=== PATIENT | female | born 1995 | race Caucasian/White ===

== ENCOUNTER 2017-04-01 21:40 | Emergency (ER) | payer MEDICAID ==
[~2017-04-01] VITALS: Ht 5283.9 cm; Wt 116.1 kg
[~2017-04-01 21:40] MED LIST: METO-292 PO; ONDA4TAB12 PO
[2017-04-01 22:53] LABS: URINE HCG NEGATIVE (NEG)
[2017-04-01] MEDS ORDERED: fluconazole 150mg tablet PO ONE (23:00)
[2017-04-01 23:18] VITALS: BP 128/69
== END 2017-04-01 23:20 | disposition home or self-care (01) ==
LOC: ER 21:41
DX: B37.3 Candidiasis of vulva and vagina (principal); F12.10 Cannabis abuse, uncomplicated; Z88.8 Allergy status to other drugs, medicaments and biological substances; Z79.899 Other long term (current) drug therapy
CPT/HCPCS: 36415; 81025; 87210; 87491; 99284

== ENCOUNTER 2020-07-23 16:41 | Emergency (ER) | payer MEDICAID ==
[~2020-07-23] VITALS: Ht 160 cm; Wt 119.8 kg
[2020-07-23 17:22] VITALS: BP 141/91
[2020-07-23] MEDS ORDERED: PENI500T2 PO (19:36)
== END 2020-07-23 20:14 | disposition home or self-care (01) ==
LOC: ER 16:42
DX: J03.90 Acute tonsillitis, unspecified (principal); F41.9 Anxiety disorder, unspecified; F32.9 Major depressive disorder, single episode, unspecified; F12.90 Cannabis use, unspecified, uncomplicated; Z88.8 Allergy status to other drugs, medicaments and biological substances; Z79.2 Long term (current) use of antibiotics; Z79.899 Other long term (current) drug therapy
CPT/HCPCS: 99283

== ENCOUNTER 2020-09-12 11:12 | Emergency (ER) | payer MEDICAID ==
[~2020-09-12] VITALS: Ht 162.6 cm; Wt 100.0 kg
[2020-09-12 11:36] VITALS: BP 148/97
== END 2020-09-12 13:08 | disposition home or self-care (01) ==
LOC: ER 11:13
DX: G43.909 Migraine, unspecified, not intractable, without status migrainosus (principal); Z88.8 Allergy status to other drugs, medicaments and biological substances; F31.9 Bipolar disorder, unspecified; F12.10 Cannabis abuse, uncomplicated
CPT/HCPCS: 99281

== ENCOUNTER 2021-01-01 21:38 | Emergency (ER) | payer MEDICAID ==
[~2021-01-01] VITALS: Ht 152.4 cm; Wt 115.9 kg
[2021-01-01] MEDS ORDERED: LIDOcaine 1% 30ml preserv. free vial IJ ONE (22:00)
[2021-01-01 22:36] VITALS: BP 147/70
== END 2021-01-01 22:52 | disposition home or self-care (01) ==
LOC: ER 21:38
DX: S61.216A Laceration without foreign body of right little finger without damage to nail, initial encounter (principal); M79.644 Pain in right finger(s); G43.909 Migraine, unspecified, not intractable, without status migrainosus; F41.9 Anxiety disorder, unspecified; F32.9 Major depressive disorder, single episode, unspecified; F12.90 Cannabis use, unspecified, uncomplicated; Z88.8 Allergy status to other drugs, medicaments and biological substances; Z79.899 Other long term (current) drug therapy; W25.XXXA Contact with sharp glass, initial encounter; Y93.89 Activity, other specified; Y92.89 Other specified places as the place of occurrence of the external cause; Y99.8 Other external cause status
CPT/HCPCS: 12001; 99282

== ENCOUNTER 2021-02-13 14:53 | Emergency (ER) | payer MEDICAID ==
--- NOTE | 2021-02-13 15:30 | NUR ---
Called second time, not in lobby
== END 2021-02-13 16:21 | disposition left against medical advice (07) ==
LOC: ER 14:53
DX: Z48.02 Encounter for removal of sutures (principal); Z53.21 Procedure and treatment not carried out due to patient leaving prior to being seen by health care provider

== ENCOUNTER 2021-02-15 15:11 | Emergency (ER) | payer MEDICAID ==
[~2021-02-15] VITALS: Ht 157.5 cm; Wt 116.0 kg
== END 2021-02-15 16:15 | disposition home or self-care (01) ==
LOC: ER 15:12
DX: S61.411D Laceration without foreign body of right hand, subsequent encounter (principal); G43.909 Migraine, unspecified, not intractable, without status migrainosus; F12.90 Cannabis use, unspecified, uncomplicated; Z48.02 Encounter for removal of sutures; Z88.8 Allergy status to other drugs, medicaments and biological substances; Z79.899 Other long term (current) drug therapy; X58.XXXD Exposure to other specified factors, subsequent encounter
CPT/HCPCS: 99282

== ENCOUNTER 2022-01-20 10:55 | Emergency (ER) | payer MEDICAID ==
[~2022-01-20] VITALS: Ht 157.5 cm; Wt 100.0 kg
[2022-01-20] MEDS ORDERED: normal saline 1000ml 1,000 ML IV ONE (13:10)
[2022-01-20 13:32] LABS: BASOPHILS % (AUTO) 0.1 % (0-1); EOSINOPHILS % (AUTO) 0 % (0-6); HEMATOCRIT 36.3 % (35.0-45.0); LYMPHOCYTES # (AUTO) 1.2 X10'3 (1.1-4.8); LYMPHOCYTES % (AUTO) 6.7 % (21-51); MEAN CORPUSCULAR HEMOGLOBIN 26.9 PG (27.0-31.0); MEAN CORPUSCULAR HGB CONC 33.1 g/dL (33.0-36.5); MEAN CORPUSCULAR VOLUME 81.2 FL (78-98); MEAN PLATELET VOLUME 9.2 FL (7.4-10.4); MONOCYTES # (AUTO) 1.7 X10'3 (0-0.9); MONOCYTES % (AUTO) 9.2 % (2-12); NEUTROPHILS # (AUTO) 15.4 X10'3 (1.8-7.7); PLATELET COUNT 273 X10'3 (140-440); RED BLOOD COUNT 4.47 X10'6 (4.20-5.60); RED CELL DISTRIBUTION WIDTH 16.1 % (11.5-14.5); WHITE BLOOD COUNT 18.3 X10'3 (4.5-11.0)
[2022-01-20 13:44] LABS: ALANINE AMINOTRANSFERASE 65 U/L (12-78); ALBUMIN/GLOBULIN RATIO 0.6 (1.1-1.5); ALKALINE PHOSPHATASE 68 IU/L (46-116); ANION GAP 7 (8-16); ASPARTATE AMINO TRANSFERASE 20 U/L (10-37); BILIRUBIN,TOTAL 0.6 MG/DL (0.1-1.0); BLOOD UREA NITROGEN 6 MG/DL (7-18); BUN/CREATININE RATIO 6.5 (6.6-38.0); CHLORIDE 99 MMOL/L (99-107); CREATININE 0.93 MG/DL (0.40-0.90); GLUCOSE 125 MG/DL (70-104); POTASSIUM 3.7 MMOL/L (3.5-5.1); SODIUM 135 MMOL/L (135-145); TOTAL CARBON DIOXIDE 29.5 MMOL/L (24-32); TOTAL PROTEIN 7.9 G/DL (6.4-8.2); eGFR 73 ML/MIN
[2022-01-20] MEDS ORDERED: acetaminophen 325mg tablet PO ONE (14:35)
[2022-01-20] MEDS ORDERED: ketorolac trometh. 30mg/ml inj. IV ONE (14:35)
[2022-01-20] MEDS ORDERED: benzonatate 100mg capsule PO ONE (14:45)
[2022-01-20 16:19] LABS: CLARITY,URINE SLIGHTLY CLOUDY (Clear); COLOR,URINE YELLOW (Yellow); GLUCOSE, URINE NEGATIVE (Neg); KETONES,URINE 40 mg/dl (Neg); LEUKOCYTE ESTERASE ,URINE NEGATIVE (Neg); NITRITES, URINE NEGATIVE (Neg); OCCULT BLOOD,URINE NEGATIVE (Neg); PROTEIN,URINE 30 mg/dl (Neg)
[2022-01-20 16:20] LABS: URINE HCG NEGATIVE (NEG)
[2022-01-20 16:23] LABS: UA COLLECTION TYPE CLN CATCH MIDSTREAM
[2022-01-20 16:25] LABS: BACTERIA,URINE FEW /HPF (Neg); RBC,URINE 0-2 /HPF (0-2)
[2022-01-20 16:26] LABS: MUCUS STRANDS MODERATE /LPF (Neg); SQUAMOUS EPITHELIAL CELL,UR MODERATE /LPF (FEW); TRICHOMONAS,URINE MOD /HPF (NEGATIVE)
[2022-01-20] MEDS ORDERED: BENZ-38 PO (17:34)
[2022-01-20] MEDS ORDERED: ONDA4TAB12 PO (17:34)
[2022-01-20] MEDS ORDERED: diphenhydrAMINE 50 mg/ml inj IV ONE (17:35)
[2022-01-20 18:00] VITALS: BP 125/88
== END 2022-01-20 18:11 | disposition home or self-care (01) ==
LOC: ER 10:55
DX: B34.9 Viral infection, unspecified (principal); Z20.822 Contact with and (suspected) exposure to COVID-19; F31.9 Bipolar disorder, unspecified; G43.909 Migraine, unspecified, not intractable, without status migrainosus; F12.10 Cannabis abuse, uncomplicated; Z88.8 Allergy status to other drugs, medicaments and biological substances; Z79.899 Other long term (current) drug therapy
CPT/HCPCS: 36415; 71045; 80053; 81001; 81025; 83880; 84145; 84484; 85025; 87088; 87502; 87503; 87635; 93005; 96361; 96374; 96375; 99285; C9803; J1200; J1885; J7030